=== PATIENT | male | born 1960 | race Caucasian/White ===

== ENCOUNTER 2021-01-25 10:48 | Outpatient (RCR) | payer OTHER, SELFPAY | END 2021-03-28 23:59 | LOC: IMMUN 10:48 | PROVIDERS: PCP Family Medicine; Visit Provider Family Medicine | DX: Z23 Encounter for immunization (principal) | CPT/HCPCS: 0001A; 0002A; 91300 ==

== ENCOUNTER 2023-03-01 20:27 | Emergency (ER) | payer OTHER, SELFPAY ==
[2023-03-01 20:28] VITALS: BP 170/113; PULSE 87; RESP 16; TEMP 37.1; O2SAT 99; BMI 33.0
--- NOTE | 2023-03-01 20:43 | EX.ED.DYSGE1 ---
HPI History of Present Illness Chief Complaint: Flank Pain PFSH PFSH Home Medications ondansetron 4 mg disintegrating tablet 4 mg PO Q8H PRN nausea and vomiting 5 days #15 tabs 03/01/23 [Rx Last Taken Unknown] oxycodone 5 mg capsule 5 mg PO Q6H PRN pain 3 days #12 caps 03/01/23 [Rx Last Taken Unknown] tamsulosin 0.4 mg capsule 0.4 mg PO DAILY #7 CAPSULES 03/01/23 [Rx Last Taken Unknown] Allergy/AdvReac Type Severity Reaction Status Date / Time No Known Allergies Allergy Verified 03/01/23 20:30 Social History Smoking Status: Never smoker EXAM Physical Exam Const Vital Signs: 03/01/23 20:28 Temperature 98.7 F Temperature Source Temporal Pulse Rate 87 Respiratory Rate 16 Blood Pressure 170/113 H Blood Pressure Mean 132 Pulse Ox 99 Oxygen Delivery Method Room Air [facility] [place] Narrative Medical decision making narrative: HISTORY OF PRESENT ILLNESS: 62-year-old male here with right-sided flank pain. The patient states this began acutely prior to arrival. States the pain radiates to the groin. States is similar to prior kidney stone. Notes nausea but no vomiting. Denies chest pain or shortness of breath. Denies focal numbness or weakness. Denies history of connective tissue disorder such as Adriane-Danlos or Marfan syndrome. Denies testicular pain. Denies any hematuria or dysuria. REVIEW OF SYSTEMS: Pertinent positives: Flank pain Pertinent negatives: Syncope, abdominal pain PHYSICAL EXAM: Nursing triage notes reviewed, Vital signs reviewed Constitutional: please see mdm HENT: MMM Eyes: Pupils equal round and reactive to light, Extraocular muscles intact Neck: No stridor, no JVD, full neck ROM Lungs: Clear to auscultation, No wheezing or rales. No increased work of breathing, no conversational dyspnea, no accessory muscle use, no nasal flaring. No respiratory distress noted Heart: Regular rate and rhythm, No murmurs, No rubs and No gallops, 2+ distal pulses (radial, femoral, posterior tibial) in all extremities Abdomen: Soft, there is no tenderness, rigidity, rebound or guarding, no obvious peritoneal signs, no palpable pulsatile abdominal masses, no auscultated abdominal bruit : No CVAT Extremities: No edema Neuro: No focal neurological deficits, cranial nerves II through XII intact, 5/5 strength in all extremities. Intact sensation to light touch in all extremities, 2+ reflexes bilateral patella tendons. Normal gait. No ataxia. Skin: No rash or lesions noted MEDICAL DECISION MAKING: Chief Complaint: Flank pain External records reviewed: No recent CT scans of the patient's abdomen or pelvis noted in the chart MDM Narrative: The patient was initially hypertensive otherwise hemodynamically stable, afebrile and nontoxic-appearing I considered the following differential diagnosis: Nephrolithiasis, pyelonephritis, AAA I treated the patient symptomatically with IV narcotics, IV anti-inflammatories, IV fluids and Zofran for nausea control. I obtained a broad lab and imaging work-up to further elucidate the etiology of the patient's complaints. CT scan of the abdomen pelvis showed evidence of a 3 mm distal nephrolithiasis on the right. Urine had no evidence of infection. There is no evidence of acute kidney injury or renal dysfunction. Patient was tolerating p.o. Is appropriate for outpatient treatment with Flomax, narcotic pain medicine, nausea medicine. I encouraged increased fluid intake. Patient expressed understanding agree with the plan Factors affecting care: History of nephrolithiasis Social determinants of health: None History obtained from others: Shared decision making: I will have a discussion with the patient and or visitors regarding risk/benefits of further testing or admission. They will be made aware of of the risk/benefits inherent in this decision they will be given the opportunity to voice understanding. Consults: None Lab Data Attestation: I reviewed the patient's lab results. Lab results narrative: CBC without leukocytosis, severe anemia, no thrombocytopenia. BMP without evidence of significant electrolyte abnormalities, no anion gap, no acute kidney injury. UA without evidence of infection Labs: Laboratory Results - last 24 hr 03/01/23 03/01/23 03/01/23 21:10 21:10 21:25 WBC 8.4 RBC 5.28 Hgb 15.4 Hct 47.5 MCV 90.0 MCH 29.2 MCHC 32.4 RDW Std Deviation 45.4 H RDW Coeff of Liz 13.9 Plt Count 314 MPV 9.8 Immature Gran % (Auto) 0.400 Neut % (Auto) 54.1 Lymph % (Auto) 31.5 [place] % (Auto) 8.7 Eos % (Auto) 4.8 Baso % (Auto) 0.5 Absolute Neuts (auto) 4.5 Absolute Lymphs (auto) 2.64 Nucleated RBC % 0 Sodium 139 Potassium 4.0 Chloride 105 Carbon Dioxide 27.0 Anion Gap 7 BUN 16 Creatinine 1.27 Estim Creat Clear Calc 65.35 Est GFR (MDRD) Af Amer 74 Est GFR (MDRD) Non-Af 61 BUN/Creatinine Ratio 12.6 Glucose 134 H Calcium 9.3 Urine Color Yellow Urine Clarity Clear Urine pH 6.0 Ur Specific [place] 1.025 Urine Protein 15 H Urine Glucose (UA) Normal Urine Ketones Negative Urine Occult Blood 50 H Urine Nitrite Negative Urine Bilirubin Negative Urine Urobilinogen Normal Ur Leukocyte Esterase Negative Urine RBC 0-5 SEEN Urine WBC 0 SEEN Ur Squamous Epith Cells 0 SEEN Urine Bacteria 0 SEEN Urine Mucus 0 SEEN Radiography Diagnostic Testing: Clinical Impression(s) from Imaging Studies Abdomen/Pelvis CT 03/01/23 21:37 IMPRESSION: 3 mm obstructing stone in the mid right ureter with mild ureteral dilatation and hydronephrosis. Electronically Signed: Jules Torres MD at 22:17 EDT , Discharge Plan Triage Chief Complaint: Flank Pain ED Provider: Khris Mcintosh Dx/Rx/DC Orders Instructions: ED Kidney Stone Undescended No ... Prescriptions: New oxycodone 5 mg capsule 5 mg PO Q6H PRN (Reason: pain) 3 Days Qty: 12 0RF tamsulosin 0.4 mg capsule 0.4 mg PO DAILY Qty: 7 0RF ondansetron 4 mg tablet,disintegrating 4 mg PO Q8H PRN (Reason: nausea and vomiting) 5 Days Qty: 15 0RF Primary Care Provider: Marixa Cervantes Referrals: John Mendoza MD [Non-Staff] - Activity Restrictions/Additional Instructions: Thank you for trusting us with your care today! Please take Tylenol (2 pills, 650 mg), ibuprofen (2 pills, 400 mg) every 6 hours as needed for pain and fever control. If this does not control your pain please take oxycodone for breakthrough pain. Please take tamsulosin as prescribed. Please return to the emergency department if your symptoms change or worsen. Specifically if he cannot tolerate oral pain medicine. Or if you develop fever, diffuse weakness, if you lose consciousness Please follow with your primary care physician for further outpatient evaluation and management. Disposition Disposition: Home, Self Care
[2023-03-01 21:18] LABS: Absolute Lymphocyte Count 2.64 X10^3/uL (0.83-4.51); Absolute Neutrophil Count 4.5 X10^3/uL (2.0-7.7); Basophil# 0.04 X10^3/uL; Basophil% 0.5 % (0-1); Eosinophils% 4.8 % (0-5); Hematocrit 47.5 % (40-54); Hemoglobin 15.4 g/dL (13.0-16.5); Lymphocyte # 2.64 X10^3/ul (0.83-4.51); Lymphocyte % 31.5 % (19-41); Mean Corp Hgb Conc 32.4 g/dL (32-36); Mean Corpuscular Hgb 29.2 pg (27.0-32.0); Mean Platelet Vol. 9.8 fl (6.2-12.0); Monocyte# 0.73 X10^3/uL; Monocyte% 8.7 % (0-10); NRBC Flagged by Analyzer 0 % (0-5); Neutrophil # 4.54 X10^3/uL (2.7-7.7); Neutrophil % 54.1 % (47-70); Platelet Count 314 K/mm3 (150-450); RBC Distribution Width CV 13.9 % (11.6-14.6); RBC Distribution Width SD 45.4 fl (35.1-43.9); Red Blood Count 5.28 M/mm3 (4.6-6.2); White Blood Count 8.4 K/mm3 (4.4-11.0)
[2023-03-01] MEDS: 0.9% Normal Saline 1,000 ML 999 ML IV (21:24)
[2023-03-01] MEDS: Morphine 4 MG/ML Syringe IV (21:25)
[2023-03-01] MEDS: Ondansetron 4 MG/2 ML Vial IV (21:25)
[2023-03-01] MEDS: Ketorolac 15 MG/ML Vial IV (21:25)
[2023-03-01 21:33] LABS: Anion Gap 7 (5-15); BUN 16 mg/dL (7-18); BUN/Creat Ratio 12.6 RATIO (10-20); Calcium,Total 9.3 mg/dL (8.5-10.1); Chloride 105 mmol/L (98-107); Creatinine, Serum 1.27 mg/dL (0.70-1.30); EST Glomerular Filtration Rate 61 mL/min (>60); Est Glom Filt Rate - Afr Amer 74 mL/min (>60); Estimated Creatinine Clearance 65.35 ml/min; Glucose 134 mg/dL (74-106); Sodium Level 139 mmol/L (136-145)
[2023-03-01 21:34] LABS: Bacteria 0 SEEN /hpf (None Seen); Mucous, Urine 0 SEEN /hpf (<or=2+); Squamous Epithelial Cells - UA 0 SEEN /hpf (0-5); White Blood Cells 0 SEEN /hpf (0-5)
--- NOTE | 2023-03-01 21:37 | CT_ITS ---
STUDY: CT ABDOMEN AND PELVIS WITHOUT CONTRAST REASON FOR EXAM: Male, 62 years old. Kidney Stone RADIATION DOSAGE (If Supplied By Facility): CTDIvol = ( 19.58 ) mGy, DLP = ( 1124.96 ) mGycm TECHNIQUE: Transaxial images were obtained from the dome of the diaphragm to the symphysis pubis without oral contrast, and without intravenous contrast. Sagittal and coronal images were reconstructed. Individualized dose optimization techniques were used for this CT. COMPARISON: None. FINDINGS: The visualized lung bases are unremarkable. The visualized portions of the heart are within normal limits. Normal liver. The gallbladder is contracted. Normal spleen. Normal pancreas. Normal bilateral adrenal glands. 3 mm obstructing stone in the mid right ureter with mild ureteral dilatation and hydronephrosis. Normal left kidney. Normal visualized stomach. Normal small intestine. There are multiple colonic diverticula consistent with diverticulosis. The appendix is visualized and appears normal. Normal abdominal aorta. Normal inferior vena cava. Normal retroperitoneum. Normal urinary bladder. There is enlargement of the prostate gland. There is a small umbilical hernia containing fat. There are diffuse degenerative changes of the visualized lumbar spine. CT/Abdomen/Pelvis without Cont IMPRESSION: 3 mm obstructing stone in the mid right ureter with mild ureteral dilatation and hydronephrosis. Electronically Signed: Jules Torres MD at 22:17 EDT ,
[2023-03-01 21:38] LABS: Color, Urine Yellow (Yellow); Glucose, Dipstick Normal (Normal); Ketone-Dipstick Negative (Negative); Leukocyte Esterase-Dipstick Negative /ul (Negative); Nitrite-Dipstick Negative (Negative); Occult Blood-Urine 50 /ul (Negative); Protein-Dipstick 15 mg/dl (Negative); Specific Gravity, Urine 1.025 (1.002-1.030); Urine Bilirubin Dipstick Negative (Negative); Urine Clarity Clear (Clear); Urine Urobilinogen Normal (Normal)
[2023-03-01 21:46] LABS: Red Blood Cells-Urine 0-5 SEEN /hpf (0-5)
[2023-03-01 22:28] VITALS: RESP 18
[2023-03-01] MEDS: oxyCODONE 5 MG Tablet PO (22:38)
== END 2023-03-01 23:44 | disposition home or self-care (01) ==
PROVIDERS: Emergency Provider Emergency Medicine; PCP Family Medicine; Visit Provider Emergency Medicine
DX: N13.2 Hydronephrosis with renal and ureteral calculous obstruction (principal); Z87.442 Personal history of urinary calculi
CPT/HCPCS: 74176; 80048; 81001; 85025; 96361; 96374; 96375; 99284; J7030; J2405

== ENCOUNTER 2025-02-23 20:06 | Emergency (ER) | payer MEDICARE, OTHER, SELFPAY ==
[2025-02-23 20:07] VITALS: BP 144/100; PULSE 88; RESP 16; TEMP 36.6; O2SAT 97; BMI 32.9
--- NOTE | 2025-02-23 20:18 | EDS_ITS ---
HPI History of Present Illness Chief Complaint: Foreign Body Narrative Narrative: 64-year-old male presents with possible aspiration of a chocolate covered [place]. He states an hour ago, he was eating chocolate covered almonds. He swallowed a whole 1, but coughed it back up. He states that he is almost positive that it went down his esophagus, but states his is concerned that he may have aspirated it and it went into his lung. However, he denies any shortness of breath or chest pain, no difficulty breathing. PFSH PFSH Home Medications ?Medication ?Instructions ?Recorded ?Last Taken ?Type ondansetron 4 mg disintegrating 4 mg PO Q8H PRN PRN Na usea #10 tabs 03/01/23 Unknown Rx tablet oxycodone 5 mg capsule 5 mg PO Q6H PRN pain 3 days #12 03/01/23 Unknown Rx caps tamsulosin 0.4 mg capsule 0.4 mg PO DAILY PRN 03/01/23 Unknown Rx nephrolithiasis 3 days #3 CAPSULES Allergy/AdvReac Type Severity Reaction Status Date / Time No Known Allergies Allergy Verified 02/23/25 20:08 Social History Smoking Status: Never smoker ROS ROS ED ROS Narrative Review of systems negative for shortness of breath, no coughing, no chest pain. No difficulty breathing. Patient feels well otherwise. EXAM Physical Exam Narrative Exam Narrative: Afebrile. Vital signs noted. Nontoxic-appearing. No acute distress. Cardiovascular examination reveals a regular rate and rhythm. Lungs are clear to auscultation bilaterally. Abdomen soft and nontender with positive bowel sounds. Neurological examination nonfocal and nonlateralizing. Const Vital Signs: 02/23/25 20:07 Temperature 98 F Temperature Source Oral Pulse Rate 88 Respiratory Rate 16 Blood Pressure 144/100 H Blood Pressure Mean 114 Pulse Ox 97 MDM MDM MDM Narrative Medical decision making narrative: Differential diagnosis includes aspiration versus medical screening examination versus pneumothorax. Patient's pulse ox is 97% on room air. He has no difficulty breathing, no difficulty swallowing. There is no drooling or trismus on examination. I had a lengthy discussion with the patient. He states that he had coughed up the whole [place] and that it was not in pieces. If he had aspir ated an entire chocolate covered almond, I would suspect more coughing or difficulty breathing. Additionally, I might expect that entire bronchus would be blocked/bronchiole and that he would be symptomatic. Chest x-ray will be obtained in 2 views for more reassurance. He is not showing any signs of aspiration and he is not febrile. Chest x-ray 2 views interpreted by myself independently shows no evidence of pneumothorax, no consolidation, no foreign body, no acute process. I reviewed the radiology report which confirms my independent interpretation. Upon repeat examination at approximately 2049, patient is resting comfortably on the cot. I feel he can be discharged safely home and follow-up with his primary care provider as needed. He is to return with any increased difficulty breathing, fever, new or worsening symptoms. Disposition is discharged home in stable condition. History & Record Review Discussion w/independent historian: Patient Radiography Diagnostic Testing: Clinical Impression(s) from Imaging Studies Chest X-Ray 02/23/25 20:25 IMPRESSION: NO ACUTE FINDINGS. Reading [facility] Discharge Plan Triage Chief Complaint: Foreign Body ED Provider: John Cochran Dx/Rx/DC Orders Clinical Impression: Encounter for medical screening examination, Choking episode Instructions: ED Choking Spell (Adult), ED Screening Exam Medical Nonurgent Prescriptions: No Action oxycodone 5 mg capsule 5 mg PO Q6H PRN (Reason: pain) 3 Days Qty: 12 0RF ondansetron 4 mg tablet,disintegrating 4 mg PO Q8H PRN PRN (Reason: Nausea) Qty: 10 0RF tamsulosin 0.4 mg capsule 0.4 mg PO DAILY PRN (Reason: nephrolithiasis) 3 Days Qty: 3 0RF Primary Care Provider: John Mendoza Referrals: John Mendoza MD [Primary Care Provider] - As Needed Activity Restrictions/Additional Instructions: Return to the emergency department with fever, difficulty breathing or swallowing, new or worsening symptoms. Print Language: [place] Disposition Disposition: Home, Self Care
--- NOTE | 2025-02-23 20:25 | RAD_ITS ---
PROCEDURE: CHEST PA AND LATERAL 02/23/2025 REASON FOR EXAM: ASPIRATION TECHNIQUE: Frontal and lateral views of the chest. COMPARISON: None FINDINGS: Hardware: None Heart: The heart size is normal. Mediastinum: The mediastinal contour is unremarkable. Lungs: Bibasilar atelectasis. No focal consolidation. No pneumothorax. No pleural effusion. Bones: The bones are unremarkable. RAD/Chest PA and Lateral IMPRESSION: NO ACUTE FINDINGS. Reading [facility]
== END 2025-02-23 20:56 | disposition home or self-care (01) ==
PROVIDERS: Emergency Provider Emergency Medicine; PCP Family Medicine; Visit Provider Emergency Medicine
DX: R09.89 Other specified symptoms and signs involving the circulatory and respiratory systems (principal)
CPT/HCPCS: 71046; 99282